=== PATIENT | male | born 1990 | race Caucasian/White ===

== ENCOUNTER 2022-09-25 18:26 | Emergency (ER) | payer MEDICAID ==
[~2022-09-25] VITALS: Ht 177.8 cm; Wt 79.5 kg
[2022-09-25 18:28] VITALS: BP 136/92
[2022-09-25] MEDS ORDERED: DOXYCYCLINE 100MG CAPSULE PO STA (20:28)
[2022-09-25] MEDS ORDERED: CefTRIAXone 500MG IM Kit w/LIDOcaine IM ONE (20:30)
[2022-09-25] MEDS ORDERED: CefTRIAXone 1000mg IM Kit (w/lidocaine diluent) IM ONE (20:40)
[2022-09-25] MEDS ORDERED: DOXY-1 PO (20:58)
== END 2022-09-25 21:18 | disposition home or self-care (01) ==
LOC: ER 18:26
DX: N43.3 Hydrocele, unspecified (principal); N45.1 Epididymitis; A64 Unspecified sexually transmitted disease; Z88.0 Allergy status to penicillin; Z79.899 Other long term (current) drug therapy
CPT/HCPCS: 36415; 76870; 87491; 87591; 93976; 96372; 99285; J0696

== ENCOUNTER 2022-12-24 11:56 | Emergency (ER) | payer MEDICAID ==
[~2022-12-24] VITALS: Ht 177.8 cm; Wt 86.4 kg
[2022-12-24 11:59] VITALS: BP 122/77
[2022-12-24] MEDS ORDERED: benzocaine (Anbesol) 12ml bottle MM PRN (13:00)
[2022-12-24] MEDS ORDERED: METR-159 PO (13:04)
[2022-12-24] MEDS ORDERED: ketorolac trometh inj. 60 MG/2 ML VIAL IM ONE (13:05)
[2022-12-24] MEDS ORDERED: ketorolac trometh. 30mg/ml inj. IM ONE (13:05)
== END 2022-12-24 13:28 | disposition home or self-care (01) ==
LOC: ER 11:57
DX: K05.10 Chronic gingivitis, plaque induced (principal); K04.7 Periapical abscess without sinus
CPT/HCPCS: 96372; 99283; J1885

== ENCOUNTER 2024-01-02 13:56 | Inpatient (IN) | payer MEDICAID ==
[~2024-01-02] VITALS: Ht 177.8 cm; Wt 82.0 kg
[~2024-01-02 13:56] MED LIST: [UNRECOGNIZED DRUG - CODE] PO
[2024-01-02 15:01] LABS: BASOPHILS # (AUTO) 0.1 X10'3 (0-0.2); BASOPHILS % (AUTO) 0.8 % (0-1); EOSINOPHILS % (AUTO) 0.6 % (0-6); HEMATOCRIT 40.2 % (42.0-52.0); HEMOGLOBIN 13.5 g/dl (14.0-17.9); LYMPHOCYTES % (AUTO) 52.5 % (21-51); MEAN CORPUSCULAR HEMOGLOBIN 28.8 PG (27.0-31.0); MEAN CORPUSCULAR HGB CONC 33.5 g/dL (33.0-36.5); MEAN PLATELET VOLUME 9.6 FL (7.4-10.4); MONOCYTES # (AUTO) 0.4 X10'3 (0-0.9); MONOCYTES % (AUTO) 5.6 % (2-12); NEUTROPHILS # (AUTO) 3.1 X10'3 (1.8-7.7); NEUTROPHILS % (AUTO) 40.5 % (42-75); PLATELET COUNT 153 X10'3 (140-440); RED BLOOD COUNT 4.67 X10'6 (4.70-6.10); RED CELL DISTRIBUTION WIDTH 13.6 % (11.5-14.5); WHITE BLOOD COUNT 7.6 X10'3 (4.5-11.0)
[2024-01-02 15:18] LABS: ALANINE AMINOTRANSFERASE 133 U/L (12-78); ALBUMIN/GLOBULIN RATIO 0.9 (1.1-1.5); ALKALINE PHOSPHATASE 118 IU/L (46-116); ANION GAP 9 (8-16); ASPARTATE AMINO TRANSFERASE 28 U/L (10-37); BILIRUBIN,TOTAL 0.4 MG/DL (0.1-1.0); BLOOD UREA NITROGEN 17 MG/DL (7-18); BUN/CREATININE RATIO 16.5 (10.0-20.0); CALCIUM 9.3 MG/DL (8.5-10.1); CHLORIDE 102 MMOL/L (99-107); CREATININE 1.03 MG/DL (0.60-1.10); GLUCOSE 82 MG/DL (70-104); LIPASE 30 U/L (16-77); SODIUM 137 MMOL/L (135-145); TOTAL PROTEIN 8.3 G/DL (6.4-8.2); eCRCL 106 ML/MIN; eGFR 84 ML/MIN
[2024-01-02 15:27] LABS: BILIRUBIN,URINE NEGATIVE (Neg); CLARITY,URINE CLEAR (Clear); COLOR,URINE YELLOW (Yellow); GLUCOSE, URINE NEGATIVE (Neg); KETONES,URINE NEGATIVE (Neg); LEUKOCYTE ESTERASE ,URINE NEGATIVE (Neg); NITRITES, URINE NEGATIVE (Neg); OCCULT BLOOD,URINE NEGATIVE (Neg); PROTEIN,URINE NEGATIVE (Neg); UROBILINOGEN,URINE 0.2 E.U/dL (0.2-1.0)
[2024-01-02 15:58] LABS: UA COLLECTION TYPE CLN CATCH MIDSTREAM
[2024-01-02] MEDS ORDERED: potassium Cl 20 mEq SR tablet PO PRN ×2 (16:25)
[2024-01-02] MEDS ORDERED: potassium Cl 40MEQ/1/2NS 520ml 520 ML IV PRN (16:25)
[2024-01-02] MEDS ORDERED: magnesium 4gm in 100ml NS 100 ML IV PRN (16:25)
[2024-01-02] MEDS ORDERED: magnesium hydroxide 30ml (MOM) UD suspension PO PRN (16:25)
[2024-01-02] MEDS ORDERED: acetaminophen 325mg tablet PO PRN (16:25)
[2024-01-02] MEDS ORDERED: docusate sod 100mg capsule PO PRN (16:25)
[2024-01-02] MEDS ORDERED: magnesium Cl slow-release 64mg tablet PO PRN (16:25)
[2024-01-02] MEDS ORDERED: mag hydrox/Alum hydrox/simeth 30ml oral suspension PO PRN (16:25)
[2024-01-02] MEDS: normal saline 1000ml 1,000 ML IV SCH (16:45)
[2024-01-02] MEDS: nicotine 14mg patch - 24hr TD ONE (17:26)
[2024-01-02] MEDS: morphine 2 MG/ML inj. syringe IV PRN (18:23)
[2024-01-02] MEDS: CefTRIAXone/D5W-Rocephin 1gm 50 ML IV SCH (19:38)
[2024-01-02] MEDS: metroNIDAZOLE-Flagyl 500mg/NS 100 ML IV SCH (19:43)
[2024-01-02] MEDS ORDERED: atropine 1 MG/1 ML vial IV ONE (20:20)
[2024-01-02 21:29] LABS: URINE AMPHETAMINE SCREEN NEGATIVE (Neg); URINE BARBITUATE SCREEN NEGATIVE (Neg); URINE BENZODIAZEPINES SCREEN NEGATIVE (Neg); URINE CANNABINOID SCREEN POSITIVE (Neg); URINE COCAINE SCREEN NEGATIVE (Neg); URINE METHADONE SCREEN POSITIVE (Neg); URINE PHENCYCLIDINE SCREEN NEGATIVE (Neg)
[2024-01-02 22:00] VITALS: BP 133/61; PULSE 86; RESP 16; TEMP 97.9; O2SAT 98
[2024-01-02] MEDS: ringers solution, lacted 1,000 ML IV ONE (22:42)
[2024-01-02] MEDS: atropine 0.1mg/ml 10ml syringe IV ONE (22:42)
[2024-01-02] MEDS: heparin, porcine 5000 units/ml vial SQ SCH (22:42)
[2024-01-02 23:29] VITALS: BP 131/82; PULSE 81; RESP 16; TEMP 98; O2SAT 99
[2024-01-03 06:00] VITALS: BP 95/58; PULSE 69; RESP 13; TEMP 97.6; O2SAT 98
[2024-01-03 06:32] LABS: BASOPHILS % (AUTO) 0.3 % (0-1); EOSINOPHILS % (AUTO) 0.8 % (0-6); HEMATOCRIT 34.2 % (42.0-52.0); HEMOGLOBIN 11.8 g/dl (14.0-17.9); LYMPHOCYTES # (AUTO) 3.4 X10'3 (1.1-4.8); LYMPHOCYTES % (AUTO) 55.2 % (21-51); MEAN CORPUSCULAR HEMOGLOBIN 29.2 PG (27.0-31.0); MEAN CORPUSCULAR HGB CONC 34.4 g/dL (33.0-36.5); MEAN CORPUSCULAR VOLUME 84.8 FL (78-98); MEAN PLATELET VOLUME 9.9 FL (7.4-10.4); MONOCYTES # (AUTO) 0.4 X10'3 (0-0.9); NEUTROPHILS # (AUTO) 2.3 X10'3 (1.8-7.7); NEUTROPHILS % (AUTO) 37.7 % (42-75); PLATELET COUNT 122 X10'3 (140-440); RED BLOOD COUNT 4.03 X10'6 (4.70-6.10); RED CELL DISTRIBUTION WIDTH 13.2 % (11.5-14.5); WHITE BLOOD COUNT 6.2 X10'3 (4.5-11.0)
[2024-01-03] MEDS: CefTRIAXone/D5W-Rocephin 1gm 50 ML IV SCH (06:33)
[2024-01-03 06:36] LABS: ALANINE AMINOTRANSFERASE 91 U/L (12-78); ALBUMIN 2.9 G/DL (3.4-5.0); ALBUMIN/GLOBULIN RATIO 0.9 (1.1-1.5); ALKALINE PHOSPHATASE 85 IU/L (46-116); ANION GAP 7 (8-16); ASPARTATE AMINO TRANSFERASE 22 U/L (10-37); BILIRUBIN,TOTAL 0.3 MG/DL (0.1-1.0); BLOOD UREA NITROGEN 12 MG/DL (7-18); BUN/CREATININE RATIO 13.2 (10.0-20.0); CHLORIDE 105 MMOL/L (99-107); CREATININE 0.91 MG/DL (0.60-1.10); GLUCOSE 84 MG/DL (70-104); SODIUM 139 MMOL/L (135-145); TOTAL CARBON DIOXIDE 26.6 MMOL/L (24-32); TOTAL PROTEIN 6.1 G/DL (6.4-8.2); eCRCL 120 ML/MIN; eGFR > 90 ML/MIN
[2024-01-03 08:00] VITALS: RESP 13; O2SAT 98
[2024-01-03] MEDS: methadone 5mg tablet PO SCH (08:00)
[2024-01-03 08:20] LABS: PLATELET ESTIMATE NORMAL; TOTAL CELLS COUNTED 100
[2024-01-03 11:00] VITALS: BP 103/61; PULSE 49; RESP 16; TEMP 98.1; O2SAT 98
[2024-01-03 18:00] VITALS: BP 107/88; PULSE 46; RESP 16; TEMP 98; O2SAT 96
[2024-01-03 22:00] VITALS: BP 92/55; PULSE 47; RESP 16; TEMP 98.1; O2SAT 98
[2024-01-04] VITALS (12 sets, daily range): BP systolic 103–132; BP diastolic 57–76; PULSE 46–66; RESP 11–20; TEMP 97.9–98.9; O2SAT 95–100
[2024-01-04] MEDS: morphine 4 MG/ML inj SYRINge IV PRN (04:29)
[2024-01-04 06:38] LABS: MEAN PLATELET VOLUME 9.9 FL (7.4-10.4); WHITE BLOOD COUNT 5.6 X10'3 (4.5-11.0)
[2024-01-04 06:42] LABS: BASOPHILS % (AUTO) 0.3 % (0-1); EOSINOPHILS # (AUTO) 0.1 X10'3 (0-0.9); EOSINOPHILS % (AUTO) 1.2 % (0-6); HEMATOCRIT 35.4 % (42.0-52.0); HEMOGLOBIN 12.1 g/dl (14.0-17.9); LYMPHOCYTES # (AUTO) 3.1 X10'3 (1.1-4.8); LYMPHOCYTES % (AUTO) 55.2 % (21-51); MEAN CORPUSCULAR HEMOGLOBIN 28.8 PG (27.0-31.0); MEAN CORPUSCULAR HGB CONC 34.3 g/dL (33.0-36.5); MONOCYTES # (AUTO) 0.4 X10'3 (0-0.9); MONOCYTES % (AUTO) 7.1 % (2-12); NEUTROPHILS % (AUTO) 36.2 % (42-75); PLATELET COUNT 134 X10'3 (140-440); RED BLOOD COUNT 4.21 X10'6 (4.70-6.10); RED CELL DISTRIBUTION WIDTH 12.9 % (11.5-14.5)
[2024-01-04 06:46] LABS: APTT 27 SECONDS (22-32); INR 1.1 INR; PROTHROMBIN TIME 11.7 SECONDS (9.0-12.0)
[2024-01-04 06:59] LABS: PLATELET ESTIMATE NORMAL; TOTAL CELLS COUNTED 100
[2024-01-04 07:10] LABS: ALANINE AMINOTRANSFERASE 85 U/L (12-78); ALBUMIN/GLOBULIN RATIO 0.9 (1.1-1.5); ALKALINE PHOSPHATASE 85 IU/L (46-116); ANION GAP 7 (8-16); ASPARTATE AMINO TRANSFERASE 27 U/L (10-37); BILIRUBIN,TOTAL 0.4 MG/DL (0.1-1.0); BLOOD UREA NITROGEN 11 MG/DL (7-18); BUN/CREATININE RATIO 11.8 (10.0-20.0); CHLORIDE 108 MMOL/L (99-107); CREATININE 0.93 MG/DL (0.60-1.10); GLUCOSE 85 MG/DL (70-104); POTASSIUM 3.8 MMOL/L (3.5-5.1); SODIUM 141 MMOL/L (135-145); TOTAL CARBON DIOXIDE 26.1 MMOL/L (24-32); TOTAL PROTEIN 6.3 G/DL (6.4-8.2); eCRCL 118 ML/MIN; eGFR > 90 ML/MIN
[2024-01-04 07:15] LABS: CALCIUM 8.3 MG/DL (8.5-10.1)
[2024-01-04] MEDS: CefTRIAXone/D5W-Rocephin 1gm 50 ML IV SCH (08:37)
[2024-01-04] MEDS: ringers solution, lacted 1,000 ML IV ONE (09:23)
[2024-01-04] MEDS: famotidine 20mg tablet PO ONE (11:52)
[2024-01-04] MEDS ORDERED: ondansetron/PF 4mg/2ml inj IV PRN (14:45)
[2024-01-04] MEDS ORDERED: labetalol 20mg/4ml (5mg/ml) syringe IV PRN (14:45)
[2024-01-04] MEDS ORDERED: proCHLORperazine 10 MG/2 ml inj IV PRN (14:45)
[2024-01-04] MEDS ORDERED: morphine 2 MG/ML inj. syringe IV PRN (14:45)
[2024-01-04] MEDS ORDERED: morphine 4 MG/ML inj SYRINge IV PRN (14:45)
[2024-01-04] MEDS ORDERED: meperidine/PF 25mg/ml syringe IV PRN ×2 (14:45)
[2024-01-04] MEDS: ringers solution, lacted 1,000 ML IV SCH (14:45)
[2024-01-04] MEDS ORDERED: hydrALAZINE 20mg/ml inj. IV PRN (14:45)
[2024-01-04] MEDS: BUPIVAcaine 2.5mg/ml inj 50ml vial (contains preservative) ONE (14:46)
[2024-01-04] MEDS ORDERED: sevoflurane 250ml liquid IH ONE (15:14)
[2024-01-04] MEDS ORDERED: midazolam 1 mg/ML 2ml injection ONE (15:15)
[2024-01-04] MEDS ORDERED: fentaNYL /PF 50mcg/ml 5ml ampule ONE (15:19)
[2024-01-04] MEDS: BUPIVAcaine 2.5mg/ml inj 50ml vial (contains preservative) SQ ONE (15:55)
[2024-01-04] MEDS ORDERED: ceFOXitin 1000 MG inj ONE ×2 (16:03)
[2024-01-04] MEDS ORDERED: propofol inj 20 ML IV ONE (16:03)
[2024-01-04] MEDS ORDERED: dexamethasone sod phosphate 4mg/ml inj. ONE (16:03)
[2024-01-04] MEDS ORDERED: rocuronium 10mg/ml inj IV ONE (16:03)
[2024-01-04] MEDS ORDERED: LIDOcaine 2% (20mg/ml) 5ml vial ONE (16:03)
[2024-01-04] MEDS ORDERED: ondansetron/PF 4mg/2ml inj ONE (16:04)
[2024-01-04] MEDS ORDERED: glycopyrrolate 0.2mg/ml inj ONE (16:14)
[2024-01-04] MEDS ORDERED: neostigmine methylsulfate 1 MG/ML 10ml vial ONE (16:14)
[2024-01-04] MEDS: acetaminophen 1,000mg/100ml IV 100 ML IV ONE (16:34)
[2024-01-04] MEDS: ketorolac trometh. 30mg/ml inj. IV ONE (16:34)
[2024-01-04] MEDS: meperidine/PF 25mg/ml syringe IV PRN (16:56)
[2024-01-04] MEDS: ondansetron/PF 4mg/2ml inj IV PRN (22:41)
[2024-01-05] VITALS: BP 108/61; PULSE 55; RESP 18; TEMP 98; O2SAT 96
[2024-01-05 02:00] VITALS: BP 105/57; PULSE 55; RESP 16; TEMP 98; O2SAT 96
[2024-01-05] MEDS: HYDROcodone/acetaminophen 5mg/325mg tablet PO PRN (05:20)
[2024-01-05 06:00] VITALS: BP 102/58; PULSE 54; RESP 18; TEMP 97.5; O2SAT 94
[2024-01-05] MEDS ORDERED: famotidine 20mg tablet PO ONE (06:00)
[2024-01-05 06:59] LABS: BASOPHILS % (AUTO) 0.1 % (0-1); EOSINOPHILS % (AUTO) 0 % (0-6); HEMATOCRIT 37.4 % (42.0-52.0); HEMOGLOBIN 12.9 g/dl (14.0-17.9); LYMPHOCYTES # (AUTO) 1.2 X10'3 (1.1-4.8); LYMPHOCYTES % (AUTO) 15.7 % (21-51); MEAN CORPUSCULAR HEMOGLOBIN 28.8 PG (27.0-31.0); MEAN CORPUSCULAR HGB CONC 34.4 g/dL (33.0-36.5); MEAN CORPUSCULAR VOLUME 83.7 FL (78-98); MEAN PLATELET VOLUME 10.4 FL (7.4-10.4); MONOCYTES # (AUTO) 0.3 X10'3 (0-0.9); MONOCYTES % (AUTO) 4.3 % (2-12); NEUTROPHILS # (AUTO) 6.2 X10'3 (1.8-7.7); NEUTROPHILS % (AUTO) 79.9 % (42-75); PLATELET COUNT 154 X10'3 (140-440); RED BLOOD COUNT 4.47 X10'6 (4.70-6.10); RED CELL DISTRIBUTION WIDTH 12.9 % (11.5-14.5); WHITE BLOOD COUNT 7.7 X10'3 (4.5-11.0)
[2024-01-05 07:38] LABS: ALANINE AMINOTRANSFERASE 74 U/L (12-78); ALBUMIN/GLOBULIN RATIO 0.9 (1.1-1.5); ALKALINE PHOSPHATASE 80 IU/L (46-116); ANION GAP 9 (8-16); ASPARTATE AMINO TRANSFERASE 30 U/L (10-37); BILIRUBIN,TOTAL 0.4 MG/DL (0.1-1.0); BLOOD UREA NITROGEN 13 MG/DL (7-18); BUN/CREATININE RATIO 15.1 (10.0-20.0); CALCIUM 8.4 MG/DL (8.5-10.1); CHLORIDE 107 MMOL/L (99-107); CREATININE 0.86 MG/DL (0.60-1.10); GLUCOSE 118 MG/DL (70-104); POTASSIUM 3.9 MMOL/L (3.5-5.1); SODIUM 140 MMOL/L (135-145); TOTAL CARBON DIOXIDE 23.6 MMOL/L (24-32); TOTAL PROTEIN 6.4 G/DL (6.4-8.2); eCRCL 127 ML/MIN; eGFR > 90 ML/MIN
[2024-01-05 08:00] VITALS: RESP 16; O2SAT 99
[2024-01-05 10:00] VITALS: BP 82/42; PULSE 56; RESP 18; TEMP 98.1; O2SAT 65
[2024-01-05] MEDS ORDERED: HYDR-3973 PO (12:01)
[2024-01-05 13:27] VITALS: RESP 16
[2024-01-05] MEDS: HYDROcodone/acetaminophen 10/325mg tab PO PRN (13:27)
== END 2024-01-05 14:01 | disposition home or self-care (01) | DRG 263 ==
LOC: ER 13:56 → ED HOLD 16:29 → EDBEDREQ 19:48 → SUR 3N 23:10
PROVIDERS: ADMIT Family Medicine; ATTEND Family Medicine
PROC: CF141ZZ Planar Nuclear Medicine Imaging of Gallbladder using Technetium 99m (Tc-99m) (ICD-10-PCS; 2024-01-03)
PROC: 0FT44ZZ Resection of Gallbladder, Percutaneous Endoscopic Approach (ICD-10-PCS; principal; 2024-01-04 15:14)
DX: K80.00 Calculus of gallbladder with acute cholecystitis without obstruction (principal); N17.0 Acute kidney failure with tubular necrosis; F15.90 Other stimulant use, unspecified, uncomplicated; Z90.49 Acquired absence of other specified parts of digestive tract; Z88.0 Allergy status to penicillin
CPT/HCPCS: 36415; 78226; 80053; 80305; 81003; 82948; 83690; 84484; 85007; 85025; 85610; 85730; 87081; 93306; 99285; A4215; A4618; A7000; A9537; G0378; J0131; J0461; J0694; J0696; J1100; J1644; J1885; J2175; J2250; J2270; J2405; J2704; J2710; J3010; J3490; J7030; J7120